=== PATIENT | male | born 1955 | race Caucasian/White ===

== ENCOUNTER 2022-05-05 08:21 | Day surgery (SDC) | payer MEDICARE ==
[~2022-05-05] VITALS: Ht 167.6 cm; Wt 77.6 kg
[~2022-05-05 08:21] MED LIST: ASPIRIN LOW DOS81 M2 PO; CLARITIN10 MG PO; KAZANO PO; LISINOPRIL5 MG PO; MELOXICAM7.5 MG PO; PROTONIX40 M2 PO; TRAMADOL HCL50 MG PO; XIGDUO PO
[2022-05-05 13:15] VITALS: BP 125/79
== END 2022-05-05 11:00 | disposition home or self-care (01) ==
LOC: ENDO 08:21 → ORM 08:30 → ENDO 10:40
PROVIDERS: ATTEND Internal Medicine Gastroenterology
PROC: 0DJD8ZZ Inspection of Lower Intestinal Tract, Via Natural or Artificial Opening Endoscopic (ICD-10-PCS; principal; 2022-05-05)
DX: Z12.11 Encounter for screening for malignant neoplasm of colon (principal); I10 Essential (primary) hypertension; E78.5 Hyperlipidemia, unspecified; Z86.010 Personal history of colon polyps

== ENCOUNTER 2022-06-09 06:50 | Day surgery (SDC) | payer MEDICARE ==
[~2022-06-09] VITALS: Ht 167.6 cm; Wt 79.4 kg
[2022-06-09 09:55] VITALS: BP 110/59
== END 2022-06-09 09:37 | disposition home or self-care (01) ==
LOC: ENDO 06:50 → ORM 10:55
PROVIDERS: ATTEND Internal Medicine Gastroenterology
PROC: 0DBP8ZX Excision of Rectum, Via Natural or Artificial Opening Endoscopic, Diagnostic (ICD-10-PCS; principal; 2022-06-09)
PROC: 0DBL8ZX Excision of Transverse Colon, Via Natural or Artificial Opening Endoscopic, Diagnostic (ICD-10-PCS; 2022-06-09)
DX: Z12.11 Encounter for screening for malignant neoplasm of colon (principal); D12.3 Benign neoplasm of transverse colon; K62.1 Rectal polyp; K64.8 Other hemorrhoids; I10 Essential (primary) hypertension; E11.9 Type 2 diabetes mellitus without complications; E78.5 Hyperlipidemia, unspecified; Z86.010 Personal history of colon polyps; Z79.84 Long term (current) use of oral hypoglycemic drugs

== ENCOUNTER 2022-07-05 10:24 | Emergency (ER) | payer MEDICARE ==
[~2022-07-05] VITALS: Ht 167.6 cm; Wt 82.4 kg
[2022-07-05] MEDS ORDERED: GABAPENTIN100 MG PO (10:35)
[2022-07-05] MEDS ORDERED: BACTRIM DS1 TAB PO (11:17)
[2022-07-05 11:25] VITALS: BP 115/72
== END 2022-07-05 11:30 | disposition home or self-care (01) ==
LOC: ED 10:24
DX: S61.212A Laceration without foreign body of right middle finger without damage to nail, initial encounter (principal); E11.9 Type 2 diabetes mellitus without complications; W45.0XXA Nail entering through skin, initial encounter; Y93.89 Activity, other specified; Y92.009 Unspecified place in unspecified non-institutional (private) residence as the place of occurrence of the external cause; Z79.84 Long term (current) use of oral hypoglycemic drugs

== ENCOUNTER 2022-08-02 11:51 | Emergency (ER) | payer MEDICARE ==
[2022-08-02] VITALS (9 sets, daily range): BP systolic 114–130; BP diastolic 67–74
[~2022-08-02] VITALS: Ht 167.6 cm; Wt 82.6 kg
[~2022-08-02 11:51] MED LIST changes: +BACTRIM DS1 TAB PO; +GABAPENTIN100 MG PO
[2022-08-02] MEDS ORDERED: PAXLOVID PO (13:24)
== END 2022-08-02 13:54 | disposition home or self-care (01) ==
LOC: ED 11:51
DX: U07.1 COVID-19 (principal); R05.9 Cough, unspecified; E11.9 Type 2 diabetes mellitus without complications

== ENCOUNTER 2023-04-13 03:48 | Emergency (ER) | payer MEDICARE ==
[2023-04-13] VITALS (19 sets, daily range): BP systolic 84–166; BP diastolic 55–99
[~2023-04-13] VITALS: Ht 167.6 cm; Wt 80.2 kg
[~2023-04-13 03:48] MED LIST changes: +PAXLOVID PO
[2023-04-13 04:33] LABS: BASO% 0.9 % (0-3); EOS% 1.3 % (0-8); HEMATOCRIT 46.1 % (39.0-50.0); HEMOGLOBIN 15.6 g/dl (14.0-18.0); IMMATURE GRANULOCYTES 0.3 % (0.0-5.0); LYMPH% 32.4 % (15-41); MEAN CELL VOLUME 93.5 fL CALC (80.0-100.0); MEAN CORPUSCULAR HGB 31.6 pG CALC (26.0-32.0); MEAN CORPUSCULAR HGB CONC 33.8 g/dL CAL (32.0-36.0); NEUT# 4.17 thou/uL (1.82-7.42); NEUT% 54.1 % (42-76); RED BLOOD COUNT 4.93 mill/uL (4.70-6.10); RED CELL DISTRI WIDTH 12.3 % (11.5-15.5)
[2023-04-13 04:38] LABS: ALBUMIN 4.5 g/dL (3.2-5.0); ALKALINE PHOSPHATASE 96 u/l (38-126); ANION GAP 11 (6-22 (CALC)); BILIRUBIN, TOTAL 0.5 mg/dL (0.2-1.3); BUN 20 mg/dL (8-23); BUN/CREATININE RATIO 27 (12-20 (CALC)); CARBON DIOXIDE 26 mmol/l (22-30); CHLORIDE 105 mmol/l (95-108); CREATININE 0.7 mg/dL (0.7-1.3); GFR FOR AFR.AMER. > 60 ML/MIN (>=60 (CALC)); GFR OTHER RACES > 60 ML/MIN (>=60 (CALC)); POTASSIUM 4.2 mmol/l (3.5-5.1); SGOT/AST 23 u/l (19-48); SODIUM 138 mmol/l (137-146); TOTAL PROTEIN 6.9 g/dL (6.3-8.2)
[2023-04-13 04:50] LABS: D-DIMER 0.2 mg/L (0.19-0.60)
[2023-04-13 04:53] LABS: URINE BILIRUBIN - DIPSTICK Negative (NEGATIVE); URINE BLOOD DIPSTICK Trace-intact (NEGATIVE); URINE COLOR Yellow; URINE GLUCOSE - DIPSTICK >=1000 mg/dL (NEGATIVE); URINE KETONE Trace mg/dL (NEGATIVE); URINE LEUK ESTERASE Negative (NEGATIVE); URINE NITRITE - DIPSTICK Negative (Negative); URINE PROTEIN - DIPSTICK Negative (NEG-TRACE); URINE SPECIFIC GRAVITY 1.025; URINE UROBILINOGEN - DIPSTICK 0.2 E.U./dL (0.2)
[2023-04-13 05:17] LABS: ACT PARTIAL THROMBO TIME 26.9 SECONDS (20.0-32.5); PROTHROMBIN TIME 9.8 SECONDS (9.0-12.5)
== END 2023-04-13 07:26 | disposition home or self-care (01) ==
LOC: ED 03:48
PROVIDERS: Family Medicine
DX: I20.9 Angina pectoris, unspecified (principal); E11.9 Type 2 diabetes mellitus without complications